=== PATIENT | male | born 1960 | race Caucasian/White ===

== ENCOUNTER 2017-05-23 08:18 | Observation (INO) | payer MEDICARE, OTHER ==
[~2017-05-23] VITALS: Ht 177.8 cm; Wt 152.1 kg
[~2017-05-23 08:18] MED LIST: ACID CONTROL150 MG PO; COLESTID1 GM PO; DILAUDID2 MG PO; FLOMAX0.4 MG PO; HYDROCODON-ACE1 EAC7 PO; LEXAPRO20 MG PO; LO-DOSE ASPIRIN81 M1 PO; LYRICA100 MG PO; PROPRANOLOL HCL40 MG PO; SINGULAIR10 MG PO; TOPAMAX100 MG PO; TOPIRAMATE200 MG PO; TRAMADOL HCL50 MG PO; ZOFRAN4 MG PO
[2017-05-23 09:37] LABS: BASOPHIL (%) 0.3 % (0-1); CARBON DIOXIDE (BICARBONATE) 27.1 MEQ/L (20-31); EOSINOPHIL (%) 1.9 % (0-5); EOSINOPHIL COUNT 0.1 K/uL (0-0.3); HEMATOCRIT 42.4 % (38.0-50.0); HEMOGLOBIN 13.4 G/DL (12.5-16.6); IMMATURE GRANULOCYTE (%) 0.6 % (0.0-0.7); LYMPHOCYTE (%) 14.8 % (15-42); MCH 27.2 PG (29.0-34.0); MCHC 31.6 G/DL (30.0-36.0); MONOCYTE COUNT 0.5 K/uL (0-0.8); NEUTROPHIL (%) 74.4 % (45-76); NEUTROPHIL COUNT 4.8 K/uL (1.8-6.4); PLATELET COUNT 178 K/uL (156-360); RBC DIS.WIDTH-CV 14.7 % (11.8-14.6); RBC DIS.WIDTH-SD 46.7 % (39-53); RED BLOOD COUNT 4.93 M/uL (4.00-5.50); WHITE BLOOD COUNT 6.5 K/uL (4.1-10.2)
[2017-05-23 09:51] LABS: CHLORIDE 101 mEq/L (99-109); SODIUM 137 mEq/L (136-147)
[2017-05-23 09:56] LABS: CREATININE 0.9 mg/dL (0.6-1.3); GFR ESTIMATE (CALCULATED) > 59 mL/min/ (58.99-99999)
[2017-05-23 09:57] LABS: GLUCOSE 518 mg/dL (70-99); UREA NITROGEN (BUN) 15 mg/dL (9-23)
[2017-05-23 10:06] LABS: APPEARANCE CLEAR ((CLEAR)); BILIRUBIN NEGATIVE; BLOOD MODERATE; COLOR YELLOW ((YELLOW)); GLUCOSE (STRIP) >=500; KETONES NEGATIVE; LEUKOCYTES TRACE; NITRITE NEGATIVE; PROTEIN (STRIP) NEGATIVE; SPECIFIC GRAVITY 1.031 (1.000-1.030); UROBILINOGEN 0.2 MG/DL (0.2-1.0)
[2017-05-23 10:13] LABS: BACTERIA RARE /HPF; EPITHELIAL CELLS RARE /HPF; MUCUS NONE SEEN /LPF; RED BLOOD CELLS 30-40 /HPF (0-5); WHITE BLOOD CELLS 0-5 /HPF (0-5)
[2017-05-23] MEDS ORDERED: ZOLMITRIPTAN5 MG PO (12:19)
[2017-05-23] MEDS ORDERED: TIZANIDINE HCL4 MG PO (12:19)
[2017-05-23] MEDS ORDERED: VITAMIN C1000 MG PO (12:20)
[2017-05-23] MEDS ORDERED: JENTADUETO 2.51 EAC2 PO (12:20)
[2017-05-23] MEDS ORDERED: MAGNESIUM250 MG PO (12:21)
[2017-05-23] MEDS ORDERED: VITAMIN D31000 UNI2 PO (12:21)
[2017-05-23] MEDS ORDERED: CINNAMON500 MG PO (12:21)
[2017-05-23 13:45] VITALS: BP 164/77
[2017-05-23 16:48] VITALS: BP 145/74
[2017-05-23 17:12] LABS: CHLORIDE 101 MEQ/L (99-109); CREATININE 0.8 MG/DL (0.6-1.3); GFR ESTIMATE (CALCULATED) > 59 mL/min/ (58.99-99999); GLUCOSE 343 mg/dL (70-99); POTASSIUM 4.7 MEQ/L (3.7-5.4); SODIUM 135 MEQ/L (136-147); UREA NITROGEN (BUN) 14 mg/dL (9-23)
[2017-05-23 20:00] VITALS: BP 132/85
[2017-05-23 22:23] LABS: CHLORIDE 98 MEQ/L (99-109); CREATININE 0.9 MG/DL (0.6-1.3); GFR ESTIMATE (CALCULATED) > 59 mL/min/ (58.99-99999); GLUCOSE 308 mg/dL (70-99); POTASSIUM 3.8 MEQ/L (3.7-5.4); SODIUM 132 MEQ/L (136-147); UREA NITROGEN (BUN) 14 mg/dL (9-23)
[2017-05-23 23:27] VITALS: BP 165/80
[2017-05-24 04:00] VITALS: BP 145/78
[2017-05-24 05:29] LABS: HEMATOCRIT 37.7 % (38.0-50.0); HEMOGLOBIN 11.7 G/DL (12.5-16.6); MCV 87.1 FL (86-99); PLATELET COUNT 145 K/uL (156-360); RBC DIS.WIDTH-CV 14.8 % (11.8-14.6); RBC DIS.WIDTH-SD 47.6 % (39-53); RED BLOOD COUNT 4.33 M/uL (4.00-5.50); WHITE BLOOD COUNT 5.1 K/uL (4.1-10.2)
[2017-05-24 07:35] VITALS: BP 148/75
[2017-05-24 09:00] LABS: CHLORIDE 99 MEQ/L (99-109); CREATININE 0.7 MG/DL (0.6-1.3); GFR ESTIMATE (CALCULATED) > 59 mL/min/ (58.99-99999); MAGNESIUM 1.8 mg/dl (1.3-2.7); SODIUM 134 MEQ/L (136-147); UREA NITROGEN (BUN) 14 mg/dL (9-23)
[2017-05-24 09:04] LABS: GLUCOSE 405 mg/dL (70-99); POTASSIUM 4.7 MEQ/L (3.7-5.4)
[2017-05-24] MEDS ORDERED: JENTADUETO 2.51 EAC2 PO (11:22)
[2017-05-24 11:49] LABS: HEMOGLOBIN A1c (GLYCOHEMOGLOB) 12.9 % (Below 5.7)
[2017-05-24 12:20] VITALS: BP 144/81; BP 159/77
[2017-05-24 15:34] VITALS: BP 140/73
== END 2017-05-24 15:39 | disposition home or self-care (01) ==
LOC: EME 08:18 → EDOF 12:19 → 5WEST 12:19 → ENRESERV 12:22 → 5WEST 13:35 → ENPENDDIS 05-24 → 5WEST 05-24 15:39
PROVIDERS: Emergency Medicine; Hospitalist
DX: E11.65 Type 2 diabetes mellitus with hyperglycemia (principal); T38.3X6A Underdosing of insulin and oral hypoglycemic [antidiabetic] drugs, initial encounter; Z91.138 Patient's unintentional underdosing of medication regimen for other reason; Z79.84 Long term (current) use of oral hypoglycemic drugs; G35 Multiple sclerosis; W18.39XA Other fall on same level, initial encounter; Z91.81 History of falling; G47.33 Obstructive sleep apnea (adult) (pediatric); K50.90 Crohn's disease, unspecified, without complications; Z87.442 Personal history of urinary calculi
CPT/HCPCS: 70450; 71045; 80048; 80048 91; 81003; 82010; 82803; 82948; 83036; 83735; 85025; 85027; 93005; 99281; 99285; G0378; G8978 GP CI; G8979 GP CH; G8980 GP CI; G8987 GO CJ; G8988 CI; G8989 CJ; J1650; J1815; J7030